=== PATIENT | male | born 1960 | race Caucasian/White ===

== ENCOUNTER 2017-05-18 13:15 | Emergency (ER) | payer BC ==
--- OUTSIDE RECORDS SUMMARY | 2017-05-18 13:21 | XMS REPORT ---
:1960 External Reference #:[id number] Author Organization [facility] Address [address] [place] [address] Phone [phone] Care Team Providers Name Role Phone Sarah Pinto Care Team Information Handle Assembler Unavailable Lore Kline MD Primary Care Physician Unavailable Payers Type Date Identification Numbers Payment Provider Subscriber Commercial Effective: Policy Number: [id number] [facility] Gauravus Haseeb Kirsten Matias 2013 PayID: [id number] [address] [address] [place] [address] Problems Date Description Provider Status Onset: 05/27/2015 Moderate persistent asthma, Malcolm Schmitt MD Active uncomplicated Onset: 05/27/2015 Allergic rhinitis Malcolm Schmitt MD Active Onset: 05/27/2015 Allergic rhinitis due to pollen Malcolm Schmitt MD Active Social History Type Date Description Comments Cigarette Use Negative For Never Smoked Cigarettes Allergies, Adverse Reactions, Alerts Date Description Reaction Status Severity Comments 05/27/2015 NKDA active Medications Medication Date Status Form Strength Qnty SIG Indications Ordering Provider Xyyuni 06/08 Active Tablets 5mg 30tab Take one s tablet by Na Schmitt MD mouth daily as needed. Dymista 05/27 Active Suspension 137-50mcg 23uni 1 puff each /Act ts nostril JAZZ Petersen twice a day Dulera 05/27 Active Aerosol 200-5mcg/ 13uni Inhale 2 Act ts puffs by Na Schmitt MD inhalation route 2 times per day in the morning and evening. Rinse mouth after use. Amlodipine 00 Active Tablets 2.5mg Unknown Besylate / Pravastatin Active Tablets 10mg Unknown Sodium Dexilant Active Capsules DR 30mg Unknown /0000 Ventolin HFA Active Aerosol 108(90Bas 18uni inhale 2 e) ts puffs by Na Schmitt MD mcg/Act inhalation route every 4 hours as needed Dulera 05/30 Hx Aerosol 100-5mcg/ 8.800 inhale 2 Act gm puffs by Na Schmitt MD - inhalation 04/22 route times per day in the morning and evening Nasonex 05/27 Hx Suspension 50mcg/Act 17gm 2 intranasal Na Schmitt MD - puffs every Dulera Hx Aerosol 100-5mcg/ 8.800 inhale 2 Act gm puffs by Na Schmitt MD - inhalation 05/27 route times per day in the morning and evening Azelastine Hx Solution 0.1% apply 1 Unknown HCL (Nasal) /0000 spray by - nasal route 04/22 2 times day Zyrtec Hx Tablets 10mg one tablet Unknown Allergy /0000 by mouth - every 06/08 Medications Administered in Office Medication Date Status Form Strength Qnty SIG Indications Ordering Provider Allergy 04/22/ Administered Injection Christopher Injection 2 2016 Na Schmitt MD Or More Allergy 04/08/ Administered Injection Christopher Injection 2 2016 Na Schmitt MD Or More Allergy 03/20/ Administered Injection Christopher Injection 2 2016 Na Schmitt MD Or More Allergy 03/01/ Administered Injection Christopher Injection 2 2016 Na Schmitt MD Or More Allergy 02/15/ Administered Injection Christopher Injection 2 2016 Na Schmitt MD Or More Allergy 01/28/ Administered Injection Christopher Injection 2 2016 Na Schmitt MD Or More Allergy 01/14/ Administered Injection Christopher Injection 2 2017 Na Schmitt MD Or More Allergy 12/31/ Administered Injection Christopher Injection 2 2017 Na Schmitt MD Or More Allergy 12/19/ Administered Injection Christopher Injection 2 2017 Na Schmitt MD Or More Allergy 11/26/ Administered Injection Christopher Injection 2 2017 Na Schmitt MD Or More Allergy // Administered Injection Christopher Injection 2 2016 Na Schmitt MD Or More Allergy 10/29/ Administered Injection Christopher Injection 2 2016 Na Schmitt MD Or More Allergy 10/08/ Administered Injection Christopher Injection 2 2016 Na Schmitt MD Or More Allergy 09/24/ Administered Injection Christopher Injection 2 2016 Na Schmitt MD Or More Allergy 08/22/ Administered Injection Christopher Injection 2 2016 Na Schmitt MD Or More Allergy // Administered Injection Christopher Injection 2 2016 Na Schmitt MD Or More Allergy 07/25/ Administered Injection Christopher Injection 2 2016 Na Schmitt MD Or More Allergy 07/09/ Administered Injection Christopher Injection 2 2016 Na Schmitt MD Or More Allergy 06/25/ Administered Injection Christopher Injection 2 2016 Na Schmitt MD Or More Allergy // Administered Injection Christopher Injection 2 2016 Na Schmitt MD Or More Allergy 05/28/ Administered Injection Christopher Injection 2 2016 Na Schmitt MD Or More Allergy 05/14/ Administered Injection Christopher Injection 2 2016 Na Schmitt MD Or More Allergy 05/02/ Administered Injection Christopher Injection 2 2015 Na Schmitt MD Or More Allergy 04/16/ Administered Injection Christopher Injection 2 2015 Na Schmitt MD Or More Allergy 03/28/ Administered Injection Christopher Injection 2 2015 Na Schmitt MD Or More Allergy 03/16/ Administered Injection Christopher Injection 2 2015 Na Schmitt MD Or More Allergy 03/05/ Administered Injection Christopher Injection 2 2015 Na Schmitt MD Or More Allergy 02/16/ Administered Injection Christopher Injection 2 2015 Na Schmitt MD Or More Allergy 02/02/ Administered Injection Christopher Injection 2 2015 Na Schmitt MD Or More Allergy 01/19/ Administered Injection Christopher Injection 2 2015 Na Schmitt MD Or More Allergy 01/05/ Administered Injection Christopher Injection 2 2015 Na Schmitt MD Or More Allergy 12/22/ Administered Injection Christopher Injection 2 2015 Na Schmitt MD Or More Allergy // Administered Injection Christopher Injection 2 2015 Na Schmitt MD Or More Allergy 11/24/ Administered Injection Christopher Injection 2 2015 Na Schmitt MD Or More Allergy // Administered Injection Christopher Injection 2 2015 Na Schmitt MD Or More Allergy 10/27/ Administered Injection Christopher Injection 2 2015 Na Schmitt MD Or More Allergy 10/16/ Administered Injection Christopher Injection 2 2015 Na Schmitt MD Or More Allergy 09/29/ Administered Injection Christopher Injection 2 2015 Na Schmitt MD Or More Allergy 09/15/ Administered Injection Christopher Injection 2 2015 Na Schmitt MD Or More Allergy 09/01/ Administered Injection Christopher Injection 2 2015 Na Schmitt MD Or More Allergy 08/21/ Administered Injection Christopher Injection 2 2015 Na Schmitt MD Or More Allergy 08/04/ Administered Injection Christopher Injection 2 2015 Na Schmitt MD Or More Allergy 07/21/ Administered Injection Christopher Injection 2 2015 Na Schmitt MD Or More Allergy 07/07/ Administered Injection Christopher Injection 2 2015 Na Schmitt MD Or More Allergy 06/24/ Administered Injection Christopher Injection 2 2015 Na Schmitt MD Or More Allergy 06/10/ Administered Injection Christopher Injection 2 2015 Na Schmitt MD Or More Vital Signs Date Vital Result Comment 04/22/2017 Height 71 inches 5'11" Weight 156.00 lb BMI (Body Mass Index) 21.8 kg/m2 Heart Rate 90 /min Respiratory Rate 18 /min Body Temperature 97.6 F O2 % BldC Oximetry 97 % 05/27/2015 BP Systolic 139 mmHg BP Diastolic 89 mmHg Height 71 inches 5'11" Weight 245.00 lb BMI (Body Mass Index) 34.2 kg/m2 Heart Rate 86 /min Respiratory Rate 12 /min Results Description No Information Procedures Date CPT Code Description Status 04/22/2017 23288 Allergy Injection 2 Or More Completed 04/08/2017 48921 Allergy Injection 2 Or More Completed 03/20/2017 90885 Allergy Injection 2 Or More Completed 03/06/2017 09967 Allergy Antigens Single Or Multiple Completed 03/01/2017 51406 Allergy Injection 2 Or More Completed 02/15/2017 94386 Allergy Injection 2 Or More Completed 01/28/2017 85229 Allergy Injection 2 Or More Completed 01/14/2017 79574 Allergy Injection 2 Or More Completed 12/31/2016 08357 Allergy Injection 2 Or More Completed 12/19/2016 79330 Allergy Injection 2 Or More Completed 11/26/2016 71668 Allergy Injection 2 Or More Completed 11/12/2016 74976 Allergy Injection 2 Or More Completed 10/29/2016 54072 Allergy Injection 2 Or More Completed 10/08/2016 95682 Allergy Injection 2 Or More Completed 09/24/2016 96316 Allergy Injection 2 Or More Completed 08/22/2016 69982 Allergy Injection 2 Or More Completed 08/08/2016 84479 Allergy Injection 2 Or More Completed 07/25/2016 37823 Allergy Injection 2 Or More Completed 07/09/2016 83177 Allergy Injection 2 Or More Completed 06/25/2016 97760 Allergy Injection 2 Or More Completed 06/11/2016 12378 Allergy Injection 2 Or More Completed 05/28/2016 04844 Allergy Injection 2 Or More Completed 05/14/2016 13054 Allergy Injection 2 Or More Completed 05/02/2016 64462 Allergy Injection 2 Or More Completed 04/16/2016 61075 Allergy Injection 2 Or More Completed 03/28/2016 98019 Allergy Injection 2 Or More Completed 03/16/2016 00484 Allergy Injection 2 Or More Completed 03/05/2016 59129 Allergy Injection 2 Or More Completed 02/17/2016 07006 Allergy Injection 2 Or More Completed 02/03/2016 51936 Allergy Injection 2 Or More Completed 01/20/2016 83323 Allergy Injection 2 Or More Completed 01/06/2016 03187 Allergy Injection 2 Or More Completed 12/30/2015 28186 Allergy Antigens Single Or Multiple Completed 12/23/2015 90191 Allergy Injection 2 Or More Completed 12/09/2015 66889 Allergy Injection 2 Or More Completed 11/25/2015 99051 Allergy Injection 2 Or More Completed 11/11/2015 86177 Allergy Injection 2 Or More Completed 10/28/2015 08283 Allergy Injection 2 Or More Completed 10/17/2015 22202 Allergy Injection 2 Or More Completed 09/30/2015 40297 Allergy Injection 2 Or More Completed 09/16/2015 12645 Allergy Injection 2 Or More Completed 09/02/2015 04945 Allergy Injection 2 Or More Completed 08/22/2015 22880 Allergy Injection 2 Or More Completed 08/05/2015 59548 Allergy Injection 2 Or More Completed 07/22/2015 30798 Allergy Injection 2 Or More Completed 07/08/2015 82929 Allergy Injection 2 Or More Completed 06/24/2015 67580 Allergy Injection 2 Or More Completed 06/10/2015 83782 Allergy Injection 2 Or More Completed 05/27/2015 27929 Bronchodilation Responsiveness Spirometry Pre/Post Completed Bronchodil Adm Encounters Type Date Location Provider CPT E/M Dx Office Visit 05/27/2015 1:30p [place] [address] J30.1 J30.89 J45.40 Plan of Care No Information Available
--- OUTSIDE RECORDS SUMMARY | 2017-05-18 13:21 | XMS REPORT ---
:1960 External Reference #:[id number] Author Organization [facility] Address [address] [address] Phone [phone] Care Team Providers Name Role Phone Lore Kline MD Primary Care Physician Unavailable Payers Type Date Identification Numbers Payment Provider Subscriber Commercial Effective: Policy Number: [id number] BS Michael Salcedo 2012 PayID: [id number] [address] [address] RONNI Bhagat [address] Medigap Part B Effective: 2010 Policy Number: [id number] BS Of JM Salcedo Expires: 2012 Group Number: [id number] [address] [address] PayID: [id number] RONNI Bhagat [address] Problems Date Description Provider Status Onset: 06/29/2010 Benign essential hypertension Lore Kline M.D. Active Onset: 06/29/2010 Hyperlipidemia Lore Kline M.D. Active Onset: 03/08/2015 Essential hypertension Lore Kline M.D. Active Family History Date Family Member(s) Problem(s) Comments Father Prostate Cancer Father Coronary Artery Disease (CAD) stents at age 83 Mother Diabetes Social History Type Date Description Comments Marital Status Lives With Spouse Candy Occupation [employer] ETOH Use Currently consumes alcohol 5-7 drinks/week Smoking Patient has never smoked Allergies, Adverse Reactions, Alerts Date Description Reaction Status Severity Comments 01/03/2010 No Known Drug Allergy active Medications Medication Date Status Form Strength Qnty SIG Indications Ordering Provider Amlodipine 04/25 Active Tablets 5mg 90tab 1 by mouth Lore Besylate s every day Iraj Kline Hydrocodone-Acet 04/25 Active Tablets 5-325mg 20tab 1 by mouth M54.2 Lore aminophen s three Cotton, times a M.D. day as needed Colcrys 11/30 Active Tablets 0.6mg 60tab take 1 s tablet by Cotton, mouth M.DMarco Antonio every 2 hours until pain subsides, maximum 10/day Dexilant 04/[address] 30mg 30cap 1 by mouth Lore /2015 s every day Iraj Kline Pravastatin 10/18 Active Tablets 10mg 90tab 1 tablet Lore Sodium s once daily Eliud at bedtime M.DMarco Antonio Peak Flow Meter 12/31 Active Device 1unit for use 995.3 s daily Iraj Kline Proair HFA 11/01 Active Aerosol 108(90Bas 18uni inhale 2 e) ts puffs by Cotton, mcg/Act mouth four M.D. times a day if needed Levocetirizine Active Tablets 5mg 1 by mouth Unknown Dihydrochloride / every day Dulera Active Aerosol 200-5mcg/ 2 puff Unknown /0000 Act twice a day Dymista Active Suspension 137-50mcg 1 spray Unknown /0000 /Act each nostril 2x a day Tussionex 09/25 Hx Suer 10-8mg/5M 115ml 5ml twice J01.90 Robbie Pennkinetic L daily as Naseem, SENIOR TECHNICAL EDITOR Extended Release - needed for 09/25 cough Tussionex 09/25 Hx Suer 10-8mg/5M 115ml 5ml twice J01.90 Robbie Pennkinetic L daily as Naseem, SENIOR TECHNICAL EDITOR Extended Release - needed for 09/25 Levofloxacin 09/25 Hx Tablets 500mg 10tab one by Robbie s mouth Naseem, SENIOR TECHNICAL EDITOR - daily for 10/06 10 days Cheratussin ac 09/25 Hx Solution 100-10mg/ 236ml 1-2 J01.90 Robbie 5ML teaspoon Naseem, SENIOR TECHNICAL EDITOR - every 6 /01 hours needed cough. Amoxicillin/Clav 09/12 Hx Tablets 875-125mg 20tab take one J01.90 Robbie ulanat s tablet q12 LAURA Gusman Potassium - hours for 09/22 10 days Tussionex 09/12 Hx Suer 10-8mg/5M 115ml 5ml twice J01.90 Robbie Pennkinetic L daily as Naseem, SENIOR TECHNICAL EDITOR Extended Release - needed for 09/22 Tussionex 06/18 Hx Suer 10-8mg/5M 115ml 5ml twice R05 Robbie Pennkinetic L daily as Naseem, LAURA Extended Release - needed for 06/18 cough Augmentin 06/18 Hx Tablets 875-125mg 20tab 1 tablet Z00.00 s by mouth Naseem SENIOR TECHNICAL EDITOR - q12 hours 06/28 for days Cheratussin ac 06/18 Hx Solution 100-10mg/ 118ml 1-2 R05 5ML teaspoon LAURA Gusman - every 6 08/02 hours needed cough. Prednisone 05/24 Hx Tablets 10mg 30tab 4 tabs by Rula Samano s mouth for Cotton, - 3 days; 3 M.D. 06/18 tabs for days, 2 tabs for 3 days, 1 tab for 3 days Azithromycin 05/24 Hx Tablets 250mg 6tabs 2 tabs by Rula mouth on Cotton, - day 1; 1 M.D. 06/18 tab by mouth every day on days 2-5 Colcrys 01/26 Hx Tablets 0.6mg 60tab take 1 Lore /2014 s tablet by Cotton, - mouth M.D. 10/18 every hours until pain subsides, maximum /day Amlodipine 01/15 Hx Tablets 2.5mg 90tab 1 by mouth Lore Besylate s every day Patricia Kline M.Kaley 04/25 Zyrtec Allergy 12/31 Hx Capsules 10mg 90cap 1 by mouth Lore s every day Patricia Kline MDyllan 09/07 Robitussin DM 05/12 Hx Syrup 100-10mg/ 355ml take 1 5ML teaspoons Cotton, - po q 4 hrs M.D. 07/08 prn cough Prednisone 05/12 Hx Tablets 10mg 21tab 4 tabs po 466.0 s x 3 days Cotton, - and 3 tabs M.D. 07/08 po x days Azithromycin 05/12 Hx Tablets 250mg 6tabs 2 tabs po 466.0 on day 1; Cotton, - 1 tab po M.D. 07/08 qd on 2-5 Dexilant 04/[address] 60mg 90cap 1 by mouth s every day Eliud - M.D. 10/18 Valsartan/Hydroc 12/14 Hx Tablets 80-12.5mg 90tab take 1 hlorothiazide s tablet by Cotton, - mouth once M.D. 01/15 Guaifenesin/Code 04/25 Hx Syrup 100-10mg/ 236un 1-2 tsp po 786.50 5ML its q 4 h Eliud, - M.D. 06/06 Levaquin 04/06 Hx Tablets 500mg 10tab 1 by mouth s once daily Eliud, - for 10 M.D. Levofloxacin 02/27 Hx Tablets 500mg 10tab 1 po qd s for 10 , - days M.D. 03/09 Prednisone 01/12 Hx Tablets 10mg 20tab 4 tabs po 493.90 s days 1-2; Eliud, - 3 tabs po M.D. 02/27 on 3-4, 2 tabs po on days 5-6, 1 tab po days 7-8 Levofloxacin 01/12 Hx Tablets 500mg 10tab 1 po qd s for 10 , - days M.D. 01/22 Azithromycin 01/02 Hx Tablets 250mg 6tabs 2 tabs po 461.9 on day 1; Eliud, - 1 tab po M.D. 01/12 qd on 2-5 Fluticasone 01/02 Hx Suspension 50mcg/Act 16gm 2 461.9 Lore Propionate intranasal Cotton, - puffs once M.D. 10/11 Flonase 11/01 Hx Suspension 50mcg/Act 1mont 1 mosher intranasal Cotton, - puff to M.D. 01/03 nostril daily Qvar 11/01 Hx Aerosol 80mcg/Act 7.300 2 puff Lore gm twice Cotton, - daily M.D. 10/11 Diovan HCT 11/01 Hx Tablets 80-12.5mg 90tab take 1 s tablet by Cotton, - mouth once M.D. 12/14 Pravastatin 11/01 Hx Tablets 20mg 90tab 1 tablet s by mouth Cotton, - once daily M.D. 10/18 at bedtime /2014 Nasonex Hx Suspension 50mcg/Act 1unit 2 sprays Unknown /0000 s to each - nostril 04/25 daily Advair Diskus Hx Aerosol 100-50mcg 1 Unknown /0000 /Dose inhalation - twice 04/25 daily Singulair Hx Tablets 10mg 1 po qd Unknown / - 04/[address] 20mg 60cap 1 po bid Lore /0000 s Cotton, - M.D. 06/06 Qnasl Hx Aerosol 80mcg/Act 8.700 2 Unknown /0000 gm inhalation - s in each 12/31 nostril /2013 once daily Omeprazole Hx Capsules DR 40mg 1 po bid Unknown /0000 - 04/21 Zyrtec Allergy Hx Capsules 10mg 30cap 1 po qd Unknown /0000 s - 05/12 Nasonex Hx Suspension 50mcg/Act 2 sprays Unknown /0000 to each - nostril 06/10 twice daily Azelastine HCL Hx Solution 0.1% 2 sprays Unknown /0000 in each - nostril 09/07 twice day Dulera Hx Aerosol 100-5mcg/ 39uni inhale 2 Lore /0000 Act ts puffs by Cotton, - mouth M.D. 09/07 twice a day Immunizations CPT Code Status Date Vaccine Lot # [id number] Given 04/25/2017 Influenza Virus Vaccine, Quadrivalent, Split, [id number] Preservative Free 32425 Given 03/08/2015 Influenza Virus Vaccine, Quadrivalent, Split, [id number] Preservative Free 42003 Given 12/31/2013 Tdap - Tetanus/Diptheria/Acellular Pertussis [id number] Given 04/21/2013 Flu Vaccine Split Virus Preservative Free For 1345 4p Indiv 3Yr Older 79841 Given 03/11/2009 Influenza Virus Vaccine, Pandemic Formulation 98428 Given 03/11/2009 Administration Swine Flu Shot 70596 Given 02/04/2009 Pneumonia Vaccine 46353 Given 06/09/2007 Influenza Virus 3Yrs & Over 94274 Given 06/09/2007 Influenza Virus 3Yrs & Over Vital Signs Date Vital Result Comment 04/25/2017 Height 71 inches 5'11" Weight 252.50 lb Heart Rate 70 /min BP Systolic 140 mmHg BP Diastolic 90 mmHg BP Systolic Sitting 138 mmHg BP Diastolic Sitting 94 mmHg O2 % BldC Oximetry 96 % BMI (Body Mass Index) 35.2 kg/m2 09/12/2016 Weight 250.00 lb Heart Rate 77 /min BP Systolic Sitting 154 mmHg BP Diastolic Sitting 88 mmHg Body Temperature 98.6 F O2 % BldC Oximetry 96 % 08/02/2016 Height 71 inches 5'11" Weight 248.00 lb Heart Rate 76 /min BP Systolic Sitting 116 mmHg BP Diastolic Sitting 74 mmHg Body Temperature 98.5 F O2 % BldC Oximetry 96 % BMI (Body Mass Index) 34.6 kg/m2 06/18/2016 Weight 241.00 lb Heart Rate 70 /min BP Systolic Sitting 140 mmHg BP Diastolic Sitting 86 mmHg Body Temperature 98.7 F O2 % BldC Oximetry 96 % 05/24/2016 Weight 244.00 lb Heart Rate 82 /min BP Systolic Sitting 152 mmHg BP Diastolic Sitting 88 mmHg Respiratory Rate 16 /min Body Temperature 98.2 F O2 % BldC Oximetry 96 % 09/08/2015 Weight 235.25 lb Heart Rate 79 /min BP Systolic Sitting 130 mmHg BP Diastolic Sitting 79 mmHg Body Temperature 98.5 F O2 % BldC Oximetry 97 % 03/08/2015 Height 71.5 inches 5'11.50" Weight 245.00 lb Heart Rate 80 /min BP Systolic Sitting 122 mmHg BP Diastolic Sitting 84 mmHg Respiratory Rate 14 /min Body Temperature 98.2 F O2 % BldC Oximetry 98 % BMI (Body Mass Index) 33.7 kg/m2 10/29/2014 Weight 248.00 lb Heart Rate 70 /min BP Systolic Sitting 133 mmHg BP Diastolic Sitting 93 mmHg Body Temperature 97.4 F 10/18/2014 Height 71 inches 5'11" Weight 248.00 lb Heart Rate 76 /min BP Systolic 113 mmHg BP Diastolic 71 mmHg Body Temperature 98.6 F BMI (Body Mass Index) 34.6 kg/m2 01/26/2014 Weight 255.00 lb Heart Rate 75 /min BP Systolic Sitting 132 mmHg BP Diastolic Sitting 85 mmHg 12/31/2013 Weight 249.00 lb Heart Rate 84 /min BP Systolic Sitting 126 mmHg BP Diastolic Sitting 86 mmHg Body Temperature 97.6 F Peak Flow Meter 640,680 05/12/2013 Weight 251.25 lb Heart Rate 68 /min BP Systolic 130 mmHg BP Diastolic 86 mmHg Body Temperature 98.8 F O2 % BldC Oximetry 97 % Peak Flow Meter 460 460, 430, 440 04/21/2013 Height 71 inches 5'11" Weight 244.00 lb Heart Rate 80 /min BP Systolic Sitting 124 mmHg BP Diastolic Sitting 80 mmHg BMI (Body Mass Index) 34.0 kg/m2 06/06/2012 Height 70.5 inches 5'10.50" Weight 243.00 lb Heart Rate 76 /min BP Systolic Sitting 124 mmHg BP Diastolic Sitting 80 mmHg Body Temperature 99.3 F BMI (Body Mass Index) 34.4 kg/m2 04/25/2012 Height 70.5 inches 5'10.50" Weight 249.00 lb Heart Rate 78 /min BP Systolic Sitting 128 mmHg BP Diastolic Sitting 80 mmHg Body Temperature 99.3 F O2 % BldC Oximetry 97 % BMI (Body Mass Index) 35.2 kg/m2 11/12/2011 Height 70.5 inches 5'10.50" Weight 248.00 lb Heart Rate 78 /min BP Systolic Sitting 138 mmHg BP Diastolic Sitting 80 mmHg BMI (Body Mass Index) 35.1 kg/m2 10/12/2011 Height 70.5 inches 5'10.50" Weight 248.00 lb Heart Rate 78 /min BP Systolic Sitting 124 mmHg BP Diastolic Sitting 70 mmHg BMI (Body Mass Index) 35.1 kg/m2 01/12/2011 Height 70.5 inches 5'10.50" Weight 249.00 lb Heart Rate 76 /min BP Systolic Sitting 128 mmHg BP Diastolic Sitting 80 mmHg Body Temperature 99.2 F BMI (Body Mass Index) 35.2 kg/m2 01/02/2011 Height 70.5 inches 5'10.50" Weight 248.00 lb Heart Rate 80 /min BP Systolic Sitting 120 mmHg BP Diastolic Sitting 80 mmHg Body Temperature 98.6 F O2 % BldC Oximetry 98 % BMI (Body Mass Index) 35.1 kg/m2 10/24/2010 Height 70.5 inches 5'10.50" Weight 244.00 lb Heart Rate 82 /min BP Systolic Sitting 124 mmHg BP Diastolic Sitting 80 mmHg BMI (Body Mass Index) 34.5 kg/m2 01/03/2010 Weight 252.50 lb Heart Rate 78 /min BP Systolic 130 mmHg BP Diastolic 78 mmHg 11/01/2009 Weight 257.50 lb Heart Rate 72 /min BP Systolic Recheck 132 mmHg BP Diastolic Recheck 92 mmHg Body Temperature 98.9 F Results Test Date Test Result H/L Range Note Lipid Profile (Trig/Chol/HDL) 07/30/2016 Triglycerides 185 mg/dL 1 Cholesterol 168 mg/dL 2 HDL Cholesterol 45.8 mg/dL 3 LDL Cholesterol 85 mg/dL 4 Comp Metabolic Panel 07/30/2016 Sodium 140 mmol/L 133-145 Potassium 4.1 mmol/L 3.5-5.0 Chloride 103 mmol/L 101-111 Co2 Carbon Dioxide 31 mmol/L 22-32 Anion Gap 6 mmol/L 2-11 Glucose 99 mg/dL 70-100 Blood Urea Nitrogen 16 mg/dL 6-24 Creatinine 1.16 mg/dL 0.67-1.17 BUN/Creatinine Ratio 13.8 8-20 Calcium 9.9 mg/dL 8.6-10.3 Total Protein 6.6 g/dL 6.4-8.9 Albumin 4.6 g/dL 3.2-5.2 Globulin 2.0 g/dL 2-4 Albumin/Globulin Ratio 2.3 1-3 Total Bilirubin 1.00 mg/dL 0.2-1.0 Alkaline Phosphatase 80 U/L 34-104 Alt 39 U/L 7-52 Ast 25 U/L 13-39 Egfr Non- 64.7 >60 Egfr 83.2 >60 5 Laboratory test finding 07/30/2016 PSA Screening 2.484 ng/mL 0-4.0 6 Laboratory test finding 12/28/2015 Uric Acid 7.8 mg/dL High 4.4-7.6 7 PSA Diagnostic 2.954 ng/mL 0-4.000 8 Lipid Profile (Trig/Chol/HDL) 09/02/2015 Triglycerides 99 mg/dL 9 Cholesterol 132 mg/dL 10 HDL Cholesterol 36.8 mg/dL 11 LDL Cholesterol 75 mg/dL 12 Comp Metabolic Panel 09/02/2015 Sodium 140 mmol/L 133-145 Potassium 4.0 mmol/L 3.5-5.0 Chloride 104 mmol/L 101-111 Co2 Carbon Dioxide 30 mmol/L 22-32 Anion Gap 6 mmol/L 2-11 Glucose 100 mg/dL 70-100 Blood Urea Nitrogen 15 mg/dL 6-24 Creatinine 1.19 mg/dL High 0.67-1.17 BUN/Creatinine Ratio 12.6 8-20 Calcium 9.7 mg/dL 8.6-10.3 Total Protein 7.0 g/dL 6.4-8.9 Albumin 4.8 g/dL 3.2-5.2 Globulin 2.2 g/dL 2-4 Albumin/Globulin Ratio 2.2 1-3 Total Bilirubin 1.50 mg/dL High 0.2-1.0 Alkaline Phosphatase 79 U/L 34-104 Alt 30 U/L 7-52 Ast 22 U/L 13-39 Egfr Non- 63.0 >60 Egfr 81.0 >60 13 Laboratory test finding 09/02/2015 Vitamin B12 486 pg/mL 180-914 14 PSA Diagnostic 2.798 ng/mL 0-4.000 15 Laboratory test finding 10/15/2014 PSA Diagnostic 1.960 ng/mL 0-4.000 16 , 17 Vitamin B12 242 pg/mL 180-914 16, 18 Lipid Profile (Trig/Chol/HDL) 10/15/2014 Triglycerides 124 mg/dL 16, 19 Cholesterol 131 mg/dL 16, 20 HDL Cholesterol 35.7 mg/dL 16, 21 LDL Cholesterol 71 mg/dL 16, 22 Comp Metabolic Panel 10/15/2014 Sodium 139 mmol/L 133-145 16 Potassium 4.3 mmol/L 3.5-5.0 16 Chloride 103 mmol/L 101-111 16 Co2 Carbon Dioxide 29 mmol/L 22-32 16 Anion Gap 7 mmol/L 2-11 16 Glucose 94 mg/dL 70-100 16 Blood Urea Nitrogen 14 mg/dL 6-24 16 Creatinine 1.17 mg/dL 0.67-1.17 16 BUN/Creatinine Ratio 12.0 8-20 16 Calcium 9.5 mg/dL 8.6-10.3 16 Total Protein 6.9 g/dL 6.4-8.9 16 Albumin 4.8 g/dL 3.2-5.2 16 Globulin 2.1 g/dL 2-4 16 Albumin/Globulin Ratio 2.3 1-3 16 Total Bilirubin 1.00 mg/dL 0.2-1.0 16 Alkaline Phosphatase 88 U/L 34-104 16 Alt 37 U/L 7-52 16 Ast 26 U/L 13-39 16 Egfr Non- 64.5 >60 16 Egfr 82.9 >60 16, 23 Laboratory test finding 04/10/2013 Vitamin B12 278 pg/mL 180-914 24 PSA Diagnostic 1.629 ng/mL 0-4.000 25 Comp Metabolic Panel 04/10/2013 Sodium 139 mmol/L 133-145 Potassium 3.6 mmol/L 3.5-5.0 Chloride 101 mmol/L 101-111 Co2 Carbon Dioxide 31.0 mmol/L 22-32 Anion Gap 7.0 mmol/L 2-11 Glucose 94 mg/dL 70-100 Blood Urea Nitrogen 14 mg/dL 6-24 Creatinine 1.20 mg/dL 0.50-1.40 BUN/Creatinine Ratio 11.7 8-20 Calcium 9.6 mg/dL 8.1-9.9 Total Protein 6.7 g/dL 6.2-8.1 Albumin 4.5 g/dL 3.6-5.4 Globulin 2.2 g/dL 2-4 Albumin/Globulin Ratio 2.0 1-3 Total Bilirubin 1.3 mg/dL 0.4-1.5 Alkaline Phosphatase 74 U/L 30-110 Alt 39 U/L 14-54 Ast 32 U/L 12-42 Egfr Non- 63.1 >60 Egfr 81.1 >60 26 Lipid Profile (Trig/Chol/HDL) 04/10/2013 Triglycerides 119 mg/dL 40-200 Cholesterol 181 mg/dL Less than 200 HDL Cholesterol 43 mg/dL 40-60 27 Cholesterol/HDL Ratio 4.2 Average 1-4.44 LDL Cholesterol 114.2 High Less Than 100 28 Laboratory test finding 04/10/2013 Hemoglobin A1c 5.4 % Less than 6.0 29 Surgical Pathology 07/31/2012 S RUN DATE: <SEE NOTE> Clotest 07/31/2012 Clotest (SEE NOTE) 31 Laboratory test finding 08/09/2011 PSA,Diagnostic 1.98 NG/ML 0-4 32 Comp Metabolic Panel 08/09/2011 Sodium 137 mmol/L 135-145 Potassium 3.4 mmol/L Low 3.5-5.0 Chloride 99 mmol/L Low 101-111 Co2 (Carbon Dioxide) 32.0 mmol/L 22-32 Anion Gap 6.0 mmol/L 2-11 33 Glucose 104 mg/dL High 70-100 BUN 8 mg/dL 6-24 Creatinine 1.2 mg/dL 0.50-1.40 One Over Creatinine 0.83 BUN/Creatinine Ratio 6.7 Low 8-20 Calcium 8.9 mg/dL 8.1-9.9 Total Protein 6.3 GM/DL 6.2-8.1 Albumin 4.2 GM/DL 3.6-5.4 Globulin 2.1 GM/DL 2-4 Albumin/Globulin Ratio 2.0 1-3 Bilirubin Total 1.4 mg/dL 0.4-1.5 34 Alkaline Phosphatase 62 U/L 39-117 Alt (SGPT) 32 U/L 17-63 Ast (Sgot) 26 U/L 12-42 eGFR Non- 63.3 > 60 eGFR 81.4 > 60 35 Lipid Profile (Trig/Chol/HDL) 08/09/2011 Triglyceride 158 mg/dL 40-200 Cholesterol 149 mg/dL Less Than 200 36 High Density Lipoprotein 36 mg/dL Low 40-60 37 Cholesterol/HDL Ratio 4.14 AVERAGE 1-4.97 Low Density Lipoprotein 81 mg/dL Less Than 100 38 Laboratory test finding 06/09/2010 PSA,Diagnostic 1.29 NG/ML 0-4 39 Lipid Profile (Trig/Chol/HDL) 06/09/2010 Triglyceride 114 mg/dL 40-200 Cholesterol 132 mg/dL Less Than 200 40 High Density Lipoprotein 35 mg/dL Low 40-60 41 Cholesterol/HDL Ratio 3.77 AVERAGE 1-4.97 Low Density Lipoprotein 74 mg/dL Less Than 100 42 Comp Metabolic Panel 06/09/2010 Sodium 140 mmol/L 135-145 Potassium 3.5 mmol/L 3.5-5.0 Chloride 100 mmol/L Low 101-111 Co2 (Carbon Dioxide) 32.0 mmol/L 22-32 Anion Gap 8.0 mmol/L 2-11 43 Glucose 88 mg/dL 70-100 BUN 16 mg/dL 6-24 Creatinine 1.10 mg/dL 0.50-1.40 One Over Creatinine 0.90 BUN/Creatinine Ratio 14.5 8-20 Calcium 9.7 mg/dL 8.1-9.9 Total Protein 6.6 GM/DL 6.2-8.1 Albumin 4.9 GM/DL 3.6-5.4 Globulin 1.7 GM/DL Low 2-4 Albumin/Globulin Ratio 2.9 1-3 Bilirubin Total 1.3 mg/dL 0.4-1.5 44 Alkaline Phosphatase 83 U/L 39-117 Alt (SGPT) 60 U/L 17-63 Ast (Sgot) 38 U/L 12-42 eGFR Non- 70.6 > 60 eGFR 90.8 > 60 45 1 Desirable <150 Borderline high 150-199 High 200-499 Very High >500 2 Desirable <200 Borderline high 200-239 High >239 3 Low <40 Desirable: 40-60 High: >60 4 Desirable: <100 mg/dL Near Optimal: 100-129 mg/dL Borderline High: 130-159 mg/dL High: 160-189 mg/dL Very High: >189 mg/dL 5 Because ethnic data is not always readily available, this report includes an eGFR for both -Americans and non- Americans. The National Kidney Disease Education Program (NKDEP) does not endorse the use of the MDRD equation for patients that are not between the ages of 18 and 70, are , have extremes of body size, muscle mass, or nutritional status, or are non- or non-. According to the National Kidney Foundation, irrespective of diagnosis, the stage of the disease is based on the level of kidney function: Stage Description GFR(mL/min/1.73 m(2)) 1 Kidney damage with normal or decreased GFR 90 2 Kidney damage with mild decrease in GFR 60-89 3 Moderate decrease in GFR 30-59 4 Severe decrease in GFR 15-29 5 Kidney failure <15 (or dialysis) 6 Serum levels of PSA measured using the [employer] DXI Hybritech immunoassay should not be interpreted as absolute evidence of the presence or absence of disease. The PSA value should be used in conjunction with other pertinent clinical diagnostic procedures. The values obtained with different assay methods or kits cannot be used interchangeably. 7 Copy Result to: JACE CARTER ([id number]) 8 Serum levels of PSA measured using the [employer] DXI Hybritech immunoassay should not be interpreted as absolute evidence of the presence or absence of disease. The PSA value should be used in conjunction with other pertinent clinical diagnostic procedures. The values obtained with different assay methods or kits cannot be used interchangeably. 9 Desirable <150 Borderline high 150-199 High 200-499 Very High >500 10 Desirable <200 Borderline high 200-239 High >239 11 Low <40 Desirable: 40-60 High: >60 12 Desirable: <100 mg/dL Near Optimal: 100-129 mg/dL Borderline High: 130-159 mg/dL High: 160-189 mg/dL Very High: >189 mg/dL 13 Because ethnic data is not always readily available, this report includes an eGFR for both -Americans and non- Americans. The National Kidney Disease Education Program (NKDEP) does not endorse the use of the MDRD equation for patients that are not between the ages of 18 and 70, are , have extremes of body size, muscle mass, or nutritional status, or are non- or non-. According to the National Kidney Foundation, irrespective of diagnosis, the stage of the disease is based on the level of kidney function: Stage Description GFR(mL/min/1.73 m(2)) 1 Kidney damage with normal or decreased GFR 90 2 Kidney damage with mild decrease in GFR 60-89 3 Moderate decrease in GFR 30-59 4 Severe decrease in GFR 15-29 5 Kidney failure <15 (or dialysis) 14 Normal Range 180 to 914 Indeterminate Range 145 to 180 Deficient Range <145 15 Serum levels of PSA measured using the [employer] DXI Hybritech immunoassay should not be interpreted as absolute evidence of the presence or absence of disease. The PSA value should be used in conjunction with other pertinent clinical diagnostic procedures. The values obtained with different assay methods or kits cannot be used interchangeably. 16 PT IS FASTING 17 Serum levels of PSA measured using the [employer] DXI Hybrite[employer] immunoassay should not be interpreted as absolute evidence of the presence or absence of disease. The PSA value should be used in conjunction with other pertinent clinical diagnostic procedures. The values obtained with different assay methods or kits cannot be used interchangeably. 18 Normal Range 180 to 914 Indeterminate Range 145 to 180 Deficient Range <145 19 Desirable <150 Borderline high 150-199 High 200-499 Very High >500 20 Desirable <200 Borderline high 200-239 High >239 21 Low <40 Desirable: 40-60 High: >60 22 Desirable: <100 mg/dL Near Optimal: 100-129 mg/dL Borderline High: 130-159 mg/dL High: 160-189 mg/dL Very High: >189 mg/dL 23 Because ethnic data is not always readily available, this report includes an eGFR for both -Americans and non- Americans. The National Kidney Disease Education Program (NKDEP) does not endorse the use of the MDRD equation for patients that are not between the ages of 18 and 70, are , have extremes of body size, muscle mass, or nutritional status, or are non- or non-. According to the National Kidney Foundation, irrespective of diagnosis, the stage of the disease is based on the level of kidney function: Stage Description GFR(mL/min/1.73 m(2)) 1 Kidney damage with normal or decreased GFR 90 2 Kidney damage with mild decrease in GFR 60-89 3 Moderate decrease in GFR 30-59 4 Severe decrease in GFR 15-29 5 Kidney failure <15 (or dialysis) 24 FASTING 25 Serum levels of PSA measured using the [employer] DXI Hybr[employer] immunoassay should not be interpreted as absolute evidence of the presence or absence of disease. The PSA value should be used in conjunction with other pertinent clinical diagnostic procedures. The values obtained with different assay methods or kits cannot be used interchangeably. 26 Because ethnic data is not always readily available, this report includes an eGFR for both -Americans and non- Americans. The National Kidney Disease Education Program (NKDEP) does not endorse the use of the MDRD equation for patients that are not between the ages of 18 and 70, are , have extremes of body size, muscle mass, or nutritional status, or are non- or non-. According to the National Kidney Foundation, irrespective of diagnosis, the stage of the disease is based on the level of kidney function: Stage Description GFR(mL/min/1.73 m(2)) 1 Kidney damage with normal or decreased GFR 90 2 Kidney damage with mild decrease in GFR 60-89 3 Moderate decrease in GFR 30-59 4 Severe decrease in GFR 15-29 5 Kidney failure <15 (or dialysis) 27 HDL Interpretation: Undesirable: High Risk: Less than 40 mg/dL Desirable: Low Risk: Greater than 60 mg/dL 28 LDL Interpretation: Low Risk Optimal Level: LDL Less than 100 mg/dL Near or Above Optimal: LDL 100-129 mg/dL Borderline High Risk: LDL 130-159 mg/dL High Risk: LDL 160-189 mg/dL Very High Risk: LDL Greater than 189 mg/dL 29 Therapeutic target for the treatment of diabetes Mellitus patients is <7% HBA1C, and in selective patients <6.0%.Please refer to [place] [employer] Diabetic care guidelines for further information. 30 RUN DATE: 08/01/12 [facility] LAB LIVE PAGE 1 RUN TIME: [address] [place] [id number] Specimen Inquiry Name: HASEEB SALCEDO : [address]: Phani Carr MD Acct: [id number] Unit: [id number] AGE: 52 Location: ENDO Re07/31/12 SEX: M Status: REG REF SPEC: [id number] QUOC: 07/31/12- SUBM DR: Phani Carr MD REQ: [id number] RECD: 07/31/121105 STATUS: RERE NDIAYE DR: Lore Seymour MD _ ORDERED: LEVEL IV/2 FINAL DIAGNOSIS 1. Stomach, antrum, biopsy: A. Gastric antral mucosa with mild chronic inflammation and foveolar hyperplasia. B. No active inflammation or Helicobacter pylori-like organisms identified. C. No goblet cell metaplasia identified. 2. GE junction, biopsy: A. Gastroesophageal junction zone mucosa with severe reflux esophagitis. B. Reactive glandular changes. C. No goblet cell metaplasia or dysplasia identified. CLINICAL HISTORY 51 year old with questionable gastroesophageal reflux disease with atypical symptoms. POST-OPERATIVE DIAGNOSIS Esophagus - mild esophagitis with Schatzki's ring and moderate hiatal hernia ; stomach - normal, antral nodule 5 mm., biopsied; pylorus and duodenum negative GROSS DESCRIPTION 1. The specimen is received in formalin labeled Haseeb Salcedo, Biopsy Gastric Antrum Nodule, and consists of multiple maldonado, soft tissue fragments measuring 1.0 x 0.3 x 0.2 cm. Submitted entirely, one cassette. 2. The specimen is received in formalin labeled Haseeb Salcedo, Biopsy GE Junction, and consists of multiple maldonado, soft tissue fragments measuring 1.0 x 0.4 x 0.2 cm. in aggregate. Submitted entirely, one cassette. 1. CONTINUED ON NEXT PAGE * ML=Testing performed at Main Lab DEPARTMENT OF PATHOLOGY, [facility] [address] [place], [place] [address] Tato Johnson M.D. Director [facility] Permit #[id number] RUN DATE: 08/01/12 [facility] LAB LIVE PAGE 2 RUN TIME: 1258 [facility] [address] [place], [place] [address] Specimen Inquiry Patient: HASEEB SALCEDO Kirsten [id number] (Continued) GROSS DESCRIPTION (Continued) Signed (signature on file) Tato Johnson MD 1258 END OF REPORT * ML=Testing performed at Main Lab DEPARTMENT OF PATHOLOGY, [facility] [address] [place], [place] [address] Tato Johnson M.D. Director [facility] Permit #[id number] RUN DATE: 08/01/12 [facility] LAB LIVE PAGE 1 RUN TIME: [address] [place] [address] Specimen Inquiry Name: HASEEB SALCEDO : [address]: Phani Carr MD Acct: [id number] Unit: [id number] AGE: 52 Location: ENDO Re07/31/12 SEX: M Status: REG REF SPEC: [id number] QUOC: 07/31/12 [facility] DR: Phani Carr MD REQ: [id number] RECD: 07/31/12 STATUS: FABIAN NDIAYE DR: Lore Kline MD _ SOURCE: GAS ANTRUM SPDESC: ORDERED: Clotest Procedure Result Verified Site Clotest Final 08/01/12829 ML Clotest Negative END OF REPORT * ML=Testing performed at Main Lab DEPARTMENT OF PATHOLOGY, [address] [place] [address] Tato Johnson M.D. Director [facility] Permit #[id number] * SERUM LEVELS OF PSA MEASURED USING THE [employer]IT[employer] EMILIAN[employer] ACCESS HYBRITECH IMMUNOASSAY SHOULD NOT BE INTERPRETED ABSOLUTE EVIDENCE OF THE PRESENCE OR ABSENCE OF DISEASE. THE PSA VALUE SHOULD BE USED IN CONJUNCTION WITH OTHER PERTINENT CLINICAL DIAGNOSTIC PROCEDURES. The values obtained with different assay methods or kits cannot be used interchangeably. 33 Anion gap measurement may be of limited value in the presence of any alkalosis, especially in a combined acid base disorder. . 34 A metabolite of Naproxen, O-desmethylnaproxen, has been shown to interfere with the Jendrassik-Bessy method for measuring total bilirubin. Samples from patients who have taken Naproxen have shown spurious elevation in total bilirubin levels. 35 Because ethnic data is not always readily available, this report includes an eGFR for both -Americans and non- Americans. The National Kidney Disease Education Program (NKDEP) does not endorse the use of the MDRD equation for patients that are not between the ages of 18 and 70, are , have extremes of body size, muscle mass, or nutritional status, or are non- or non-. According to the National Kidney Foundation, irrespective of diagnosis, the stage of the disease is based on the level of kidney function: Stage Description GFR(mL/min/1.73 m(2)) 1 Kidney damage with normal or decreased GFR 90 2 Kidney damage with mild decrease in GFR 60-89 3 Moderate decrease in GFR 30-59 4 Severe decrease in GFR 15-29 5 Kidney failure <15 (or dialysis) 36 CHOLESTEROL INTERPRETATION: Desirable: Less than 200 MG/DL Borderline-High Risk: 200-239 MG/DL High-Risk: 240 MG/DL and over 37 HDL INTERPRETATION: Undesirable: High Risk: Less than 40 MG/DL Desirable: Low Risk: Greater than 60 MG/DL 38 LDL INTERPRETATION: Low Risk Optimal Level: LDL Less than 100 MG/DL Near or Above Optimal: LDL 100-129 MG/DL Borderline High Risk: LDL 130-159 MG/DL High Risk: LDL 160-189 MG/DL Very High Risk: LDL Greater than 189 MG/DL 39 * SERUM LEVELS OF PSA MEASURED USING THE [employer] ACCESS HYBRITECH IMMUNOASSAY SHOULD NOT BE INTERPRETED ABSOLUTE EVIDENCE OF THE PRESENCE OR ABSENCE OF DISEASE. THE PSA VALUE SHOULD BE USED IN CONJUNCTION WITH OTHER PERTINENT CLINICAL DIAGNOSTIC PROCEDURES. 40 CHOLESTEROL INTERPRETATION: Desirable: Less than 200 MG/DL Borderline-High Risk: 200-239 MG/DL High-Risk: 240 MG/DL and over 41 HDL INTERPRETATION: Undesirable: High Risk: Less than 40 MG/DL Desirable: Low Risk: Greater than 60 MG/DL 42 LDL INTERPRETATION: Low Risk Optimal Level: LDL Less than 100 MG/DL Near or Above Optimal: LDL 100-129 MG/DL Borderline High Risk: LDL 130-159 MG/DL High Risk: LDL 160-189 MG/DL Very High Risk: LDL Greater than 189 MG/DL 43 Anion gap measurement may be of limited value in the presence of any alkalosis, especially in a combined acid base disorder. . 44 A metabolite of Naproxen, O-desmethylnaproxen, has been shown to interfere with the Jendrassik-Throop method for measuring total bilirubin. Samples from patients who have taken Naproxen have shown spurious elevation in total bilirubin levels. 45 Because ethnic data is not always readily available, this report includes an eGFR for both -Americans and non- Americans. The National Kidney Disease Education Program (NKDEP) does not endorse the use of the MDRD equation for patients that are not between the ages of 18 and 70, are , have extremes of body size, muscle mass, or nutritional status, or are non- or non-. According to the National Kidney Foundation, irrespective of diagnosis, the stage of the disease is based on the level of kidney function: Stage Description GFR(mL/min/1.73 m(2)) 1 Kidney damage with normal or decreased GFR 90 2 Kidney damage with mild decrease in GFR 60-89 3 Moderate decrease in GFR 30-59 4 Severe decrease in GFR 15-29 5 Kidney failure <15 (or dialysis) Procedures Date CPT Code Description Status 01/02/2011 72591 Noninvasive Ear Or Pulse Oximetry For Oxygen Saturation Completed 06/17/2009 Colonoscopy Completed 03/28/2009 35458 Pulmonary Function><Bronchodilator Completed 02/04/2009 20479 EKG Tracing & Interpretation Completed 04/18/2006 23108 EKG Tracing & Interpretation Completed Encounters Type Date Location Provider CPT E/M Dx Office Visit 09/12/2016 2:20p [facility] [place] [address] J01.90 Gabriels J20.9 Office Visit 08/02/2016 3:40p [facility] Internal Medicine Lore Kline 30581 Z00.00 - Andre Galo E78.5 I10 J32.8 Office Visit 06/18/2016 9:40a [facility] [place] [address] J01.90 Gabriels R05 Office Visit 05/24/2016 9:00a [facility] Internal Medicine Lore Kline 13841 J45.41 - Andre Galo Office Visit 09/08/2015 9:00a [facility] Internal Medicine Lore Kline 88472 I10 - Andre Galo E78.5 M10.00 R97.2 M10.079 Office Visit 03/08/2015 9:00a [facility] Internal Medicine Lore Kline 60347 Z00.00 - Andre Galo I10 E78.5 M54.5 R10.9 Z23 Office Visit 10/29/2014 4:40p [facility] Internal Medicine Lore Kline 87450 789.02 - Andre Galo Office Visit 10/18/2014 11:40a [facility] Internal Medicine Lore Kline 71083 401.1 - Andre Galo 272.4 709.8 724.5 789.02 724.2 Office Visit 01/26/2014 9:00a [facility] Internal Medicine [place] A [address] 401.1 - Andre Office Visit 12/31/2013 9:40a [facility] Internal Medicine Lore Kline 68989 401.1 - Andre Galo 995.3 V76.44 530.81 493.90 V06.1 Office Visit 05/12/2013 4:00p [facility] Internal Medicine Lore Cotton, 92477 466.0 - Gabriels M.D. Office Visit 04/21/2013 10:20a [facility] Internal Medicine Lore Cotton, 29032 V70.0 - Gabriels M.D. 401.1 272.4 786.2 238.2 600.00 V04.81 Office Visit 06/06/2012 4:00p [facility] Internal Medicine Lore Cotton, 29677 786.2 - Gabriels M.D. 530.81 401.1 Office Visit 04/25/2012 1:00p [facility] Internal Medicine Lore Cotton, 31409 786.50 - Gabriels M.D. Office Visit 11/12/2011 2:20p [facility] Internal Medicine Lore Cotton, 20534 682.2 - Gabriels M.D. Office Visit 10/12/2011 1:20p [facility] Internal Medicine Lore Cotton, 14404 401.1 - Gabriels M.D. 461.9 790.21 Office Visit 01/12/2011 11:40a DO Not Use Lore Cotton, 90236 493.90 Document Reviewer-Gabriels M.D. Office Visit 01/02/2011 8:40a DO Not Use Lore Cotton, 30140 493.00 Document Reviewer-Gabriels M.D. 461.9 Office Visit 10/24/2010 8:40a DO Not Use Lore Cotton, 85411 V70.0 Document Reviewer-Gabriels M.D. 401.1 272.4 V76.44 Office Visit 01/03/2010 8:30a DO Not Use Lore Cotton, 67406 796.2 Document Reviewer-Gabriels M.D. 724.5 Office Visit 11/01/2009 3:30p DO Not Use Lore Cotton, 48879 372.03 Document Reviewer-Gabriels M.D. 401.1 724.5 Office Visit 03/11/2009 10:45a DO Not Use Veronica Sanches, 54539 493.90 Document Reviewer-Gabriels M.D. 466.0 V04.81 Office Visit 02/04/2009 9:15a DO Not Use Veronica Sanches 46809 V70.0 Document Reviewer-Gabriels M.D. 493.90 401.1 272.4 V03.82 Office Visit 10/27/2007 8:30a DO Not Use RadVeronica sommer, 57383 493.90 Document Reviewer-Gabriels M.D. 401.1 Office Visit 06/09/2007 1:15p DO Not Use RadomsVeronica quiles, 38908 V70.0 Document Reviewer-Gabriels M.D. 401.1 V04.81 Office Visit 11/18/2006 10:00a DO Not Use RadomsVeronica quiles, 98190 272.0 Document Reviewer-Gabriels M.D. 401.1 277.7 Office Visit 06/26/2006 9:45a DO Not Use RadomsVeronica quiles, 86264 401.1 Document Reviewer-Gabriels M.D. 272.0 277.7 Office Visit 04/18/2006 1:15p DO Not Use RadVeronica sommer, 68433 V70.0 Document Reviewer-Gabriels M.D. Plan of Care Future Appointment(s):08/06/2017 10:40 am - Lore Kline M.D. at [facility] [place]04/25/2017 - Lore Kline M.D.Z23 Encounter for immunizationComments:Your blood pressure is too high.Increase the amlodipine from 2.5 to 5 mg Check BP at home/workGoal: 120/80Look for OMRONCall or email me if BP is >140/85Follow up:.2 CervicalgiaNew Medication: Hydrocodone-Acetaminophen 5-325 mgComments:You had Vicodin in the past Ibuprofen might work just as well - sporadic use OKI10 Essential (primary) hypertensionComments:Please do fasting blood test before appointment in August
[2017-05-18 13:27] VITALS: BP 147/80
--- NOTE | 2017-05-18 13:35 | UC ---
Throat Pain/Nasal Wu HPI - HPI Summary HPI Summary: 56 year old male with sinus pressure and congestion for over 1 week and now on day 8 or 9 . Not improving at all. Productive discharge. - History of Current Complaint Chief Complaint: UCRespiratory Stated Complaint: SINUS Time Seen by Provider: 05/18/17 13:32 Hx Obtained From: Patient Onset/Duration: Gradual Onset Severity: Moderate Cough: Productive Associated Signs & Symptoms: Positive: Sinus Discomfort, Nasal Discharge - Allergies/Home Medications Allergies/Adverse Reactions: Allergies Allergy/AdvReac Type Severity Reaction Status Date / Time SEASONAL Allergy Congestion Uncoded 05/18/17 13:22 Home Medications: Home Medications Albuterol HFA INHALER* [Ventolin HFA Inhaler*] 2 puff INH Q4H PRN 05/18/17 [ History Confirmed 05/18/17] Dexlansoprazole (NF) [Dexilant (NF)] 30 mg PO DAILY 05/18/17 [History Confirmed 05/18/17] LevoCETirizine TAB (NF) [Xyzal TAB (NF)] 10 mg PO DAILY 05/18/17 [History Confirmed 05/18/17] Mometasone/Formoter 200/5 MDI* [Dulera 200/5 MDI*] 2 puff INH BID 05/18/17 [ History Confirmed 05/18/17] Pravastatin (NF) [Pravachol (NF)] mg PO 1700 05/18/17 [History] amLODIPine TAB* [Norvasc 5 mg TAB*] 5 mg PO DAILY 05/18/17 [History Confirmed ] PMH/Surg Hx/FS Hx/Imm Hx Previously Healthy: Yes Endocrine History: Dyslipidemia Cardiovascular History: Hypertension - Surgical History Surgical History: None Surgery Procedure, Year, and Place: MOLES REMOVED - Family History Known Family History: Positive: Hypertension - Social History Occupation: Employed Full-time Alcohol Use: Occasionally Substance Use Type: None Smoking Status (MU): Never Smoked Tobacco Review of Systems Constitutional: Fatigue ENT: Ear Ache, Nasal Discharge, Sinus Congestion, Sinus Pain/Tenderness Respiratory: Cough Is Patient Immunocompromised?: No All Other Systems Reviewed And Are Negative: Yes Physical Exam Triage Information Reviewed: Yes Appearance: Well-Appearing, No Pain Distress, Well-Nourished Vital Signs: Initial Vital Signs Temp 98.6 F 05/18/17 13:24 Pulse 77 05/18/17 13:24 Resp 18 05/18/17 13:24 BP 147/80 05/18/17 13:24 Pulse Ox 97 05/18/17 13:24 Vital Signs Reviewed: Yes Eye Exam: Normal ENT Exam: Normal ENT: Positive: Nasal congestion, Nasal drainage, Sinus tenderness Dental Exam: Normal Neck exam: Normal Neck: Positive: 1 Respiratory Exam: Normal Cardiovascular Exam: Normal Musculoskeletal Exam: Normal Neurological Exam: Normal Psychological Exam: Normal Skin Exam: Normal Throat Pain/Nasal Course/Dx - Differential Dx/Diagnosis Differential Diagnosis/HQI/PQRI: Pharyngitis, Sinusitis, Tonsillitis, URI Provider Diagnoses: Sinusitis Discharge - Discharge Plan Condition: Good Disposition: HOME Prescriptions: Amoxicillin/Clavulanate TAB* [Augmentin TAB 875*] 875 mg PO BID #20 tab Benzonatate [TESSALON 200 MG CAP] 200 mg PO TID #20 cap Patient Education Materials: Sinusitis (ED) Referrals: Lore Kline MD [Primary Care Provider] - 4 Days (if needed ) Additional Instructions: As we discussed you appear to have a viral infection and are advised to treat with supportive medications as you are already using and also a cough suppressant. If your symptoms progress or worsen then you may start the antibiotics.
== END 2017-05-18 14:04 | disposition home or self-care (01) ==
LOC: UCEAST 13:15
DX: J32.9 Chronic sinusitis, unspecified (principal); E78.5 Hyperlipidemia, unspecified; I10 Essential (primary) hypertension; Z79.899 Other long term (current) drug therapy; Z91.048 Other nonmedicinal substance allergy status
CPT/HCPCS: 99212; G0463